=== PATIENT | male | born 1985 | race Caucasian/White ===

== ENCOUNTER 2022-04-13 14:51 | Emergency (ER) | payer MEDICAID ==
[~2022-04-13] VITALS: Ht 182.9 cm; Wt 163.4 kg
[2022-04-13 14:52] VITALS: BP 131/73
[2022-04-13] MEDS ORDERED: amox tr/potassium clavulanate 875/125mg TAB PO ONE (15:20)
[2022-04-13] MEDS ORDERED: TETanus/Pertussis (Acell)/Diphther VAC/PF (Tdap-Adult) 0.5ml syringe IMVAC ONE (15:20)
[2022-04-13] MEDS ORDERED: bacitracin 15gm ointment TP ONE (15:20)
[2022-04-13] MEDS ORDERED: ketorolac trometh inj. 60 MG/2 ML VIAL IM ONE (15:20)
[2022-04-13] MEDS ORDERED: AMOX-117 PO (15:29)
[2022-04-13] MEDS ORDERED: IBUP-1986 PO (15:29)
== END 2022-04-13 16:02 | disposition home or self-care (01) ==
LOC: ER 14:51
DX: S91.331A Puncture wound without foreign body, right foot, initial encounter (principal); F17.200 Nicotine dependence, unspecified, uncomplicated; Z56.0 Unemployment, unspecified; W54.0XXA Bitten by dog, initial encounter; Y93.89 Activity, other specified; Y92.89 Other specified places as the place of occurrence of the external cause; Y99.8 Other external cause status
CPT/HCPCS: 90471; 90715; 96372; 99284; J1885

== ENCOUNTER 2022-10-14 13:22 | Outpatient (CLI) | payer MEDICAID ==
[~2022-10-14 13:22] MED LIST: IBUP-1986 PO
== END 2022-10-14 23:59 | disposition home or self-care (01) ==
LOC: RAD 13:22
PROVIDERS: ATTEND Physician Assistant
DX: I51.7 Cardiomegaly (principal); F11.20 Opioid dependence, uncomplicated
CPT/HCPCS: 93005

== ENCOUNTER 2023-01-19 15:23 | Outpatient (CLI) | payer MEDICAID | END 2023-01-19 23:59 | disposition home or self-care (01) | LOC: RAD 15:23 | PROVIDERS: ATTEND Physician Assistant | DX: F11.20 Opioid dependence, uncomplicated (principal) | CPT/HCPCS: 93005 ==

== ENCOUNTER 2023-06-22 12:23 | Outpatient (CLI) | payer MEDICAID | END 2023-06-22 23:59 | disposition home or self-care (01) | LOC: RAD 12:23 | PROVIDERS: ATTEND Physician Assistant | DX: Z01.810 Encounter for preprocedural cardiovascular examination (principal); I51.7 Cardiomegaly | CPT/HCPCS: 93005 ==